=== PATIENT | female | born 1975 | race Caucasian/White ===

== ENCOUNTER → 2017-12-16 | Outpatient (CLI) | payer OTHER ==
[~2017-12-16] MED LIST: ALBIPROI INH; ALBU90I INH; ALBU90OI; ALBU90OI INH; ALBU90OI61 INH; ARIP10; AZIT250 PO; AZIT500; BENTYL20 MG PO; BENZ100A PO; BUSP15 PO; BUTALB-ACETAMI1 EAC2 PO; CARI350 PO; CLON2; CRUTCH4 USE; CYCL10 PO; DIAZ2; DULO30 PO; DULO60 PO; ESCI10; ESTR2 PO; FLUT1DIS5 INH; Flovent Disku100 MCG INH; GABA300 PO; GUAIFENESIN; HYDACE5 PO; HYDGUAL120 PO; IBUP600 PO; IBUP800 PO; LAMO100 PO; LEVO750 PO; LITH300C PO; MECL25 PO; METPRE4DP PO; NAPR500 PO; NAPR550 PO; Norco 5-325 Ta1 EACH PO; OMEP20ER PO; OMEPRAZOLE MAGN20 MG PO; ONDA4ODT PO; PENACE PO; PRED20 PO; PROACE100 PO; PROC10 PO; PROM25 PO; Phenergan25 M1 PO; Prilosec20 MG PO; QUET25 PO; QVAR7.3 G1 IH; RANI150; RISP.25 PO; RISP1 PO; RXCYCL10 PO; RXHYDACE PO; RXNAPNA550 PO; RXPROACE PO; Seroquel25 MG PO; TOPI25 PO; TRAM50 PO; VITAMIN D-32000 UNIT PO; Zithromax250 MG PO; [UNRECOGNIZED DRUG - OTHER]; [UNRECOGNIZED DRUG - OTHER]
== END ==
LOC: LAB SHORT 14:47 → LAB 14:47
DX: L02.92 Furuncle, unspecified (principal)
CPT/HCPCS: 87070; 87075; 87077; 87186; 87205